=== PATIENT | male | born 1960 | race Caucasian/White ===

== ENCOUNTER → 2019-10-19 | Outpatient (CLI) | payer OTHER ==
--- NOTE | 2019-10-19 17:09 | P ---
[facility] [place] [address] PROCEDURE REPORT Name: ANNABELLA JOHANSEN Room #: [facility]#: [id number] Admission: 10/19/19 Attend Phys: Wilbert Purcell MD Discharge: Date of : 56 Report #: [id number] THIS REPORT FOR: //name// CC: Daniel Purcell DATE OF SERVICE: 10/19/2019 OUTPATIENT COLONOSCOPY REPORT BRIEF HISTORY: The patient is a 59-year-old male with a history of two colon adenomas removed in 05/2013. PREOPERATIVE DIAGNOSIS: History of colon polyps. POSTOPERATIVE DIAGNOSIS: Diverticulosis coli. MEDICATIONS: Deep sedation with propofol per anesthesia. SPECIMENS: None. ESTIMATED BLOOD LOSS: None. PROCEDURE: Colonoscopy to cecum and terminal ileum. FINDINGS: Prior to propofol sedation, procedure of colonoscopy discussed with the patient as well as potential risks and its complications. He indicates he understands and desires to proceed. DESCRIPTION OF PROCEDURE: With the patient in left lateral decubitus position, digital examination was completed, which revealed no abnormalities. Subsequently, the Olympus video colonoscope was introduced, recommend under direct vision to the cecum. Done with minimal difficulty. The cecum was identified by the ileocecal valve and the appendiceal orifice. I was able to visualize the distal segment of terminal ileum, which was inspected and noted to be unremarkable. At that point, the scope was slowly withdrawn and careful circumferential views obtained including retroflexion of the scope in the ascending colon. Upon slow withdrawal of the scope, the prep was excellent. The mucosa was within normal limits, normal vascular pattern, normal light reflex. As we withdrew the scope, no neoplastic lesions were seen. Polyps were not seen on this examination. However, he was noted to have mild diverticular disease of the sigmoid colon. There were also few scattered small diverticula in the proximal colon. Scope was withdrawn in the rectum and upon retroflexion, no abnormalities were seen. Scope was withdrawn. The patient tolerated the procedure well. [address] [address] PROCEDURE REPORT Name: ANNABELLA JOHANSEN Room #: [facility]#: [id number] Admission: 10/19/19 Attend Phys: Wilbert Purcell MD Discharge: Date of : 56 Report #: [id number] CONDITION OF THE PATIENT UPON DISCHARGE: Following procedure, the patient was drowsy, arousable, conversant and will be discharged home when fully ambulatory. INSTRUCTIONS TO THE PATIENT AND FAMILY AT THE TIME OF DISCHARGE: No neoplastic lesions seen on today's examination. Suggest high fiber diet due to the diverticular disease. He had two diminutive adenomas removed more than 6 years ago. Suggest followup colon exam in 10 years. Last colonoscopy was in 05/2013. Withdrawal time from the cecum was 13 minutes 25 seconds. <ELECTRONICALLY SIGNED> By: Wilbert Purcell MD 10/19/19 1709 [id number] Wilbert Purcell MD /mark
== END | disposition home or self-care (01) ==
LOC: GI 06:29
DX: Z12.11 Encounter for screening for malignant neoplasm of colon (principal); K57.30 Diverticulosis of large intestine without perforation or abscess without bleeding; Z86.010 Personal history of colon polyps
CPT/HCPCS: 62110; 62900